=== PATIENT | male | born 1935 | race Caucasian/White ===

== ENCOUNTER → 2016-11-26 | Outpatient (CLI) | payer OTHER ==
[2016-11-26 13:02] LABS: BUN/CREATININE RATIO 17.77 (6-20); CALCIUM 9.1 mg/dL (8.7-10.7)
== END ==
LOC: LAB 08:48
DX: I25.708 Atherosclerosis of coronary artery bypass graft(s), unspecified, with other forms of angina pectoris (principal); R60.0 Localized edema; Z95.1 Presence of aortocoronary bypass graft
CPT/HCPCS: 80048

== ENCOUNTER → 2016-12-01 | Outpatient (CLI) | payer SELFPAY ==
[2016-12-01 13:31] LABS: HEMOGLOBIN A1C 6.57 % (4.2-6.0)
== END ==
LOC: LAB 08:36
DX: R73.9 Hyperglycemia, unspecified (principal)
CPT/HCPCS: 83036